=== PATIENT | female | born 1980 | race African-American/Black ===

== ENCOUNTER 2016-11-22 20:10 | Emergency (ER) | payer OTHER ==
[~2016-11-22] VITALS: Ht 170.2 cm; Wt 129.7 kg
[~2016-11-22 20:10] MED LIST: CITA20TA9 PO; FURO-68 PO; HYDR-965 PO; LORA0.5T96 PO; METH-37 PO; NAPR500T3 PO; OXYC-323 PO; SULF200O PO; TRAZ50TA15 PO
[2016-11-22 21:02] VITALS: BP 135/75
[2016-11-22] MEDS ORDERED: FAMO-63 PO (21:12)
--- NOTE | 2016-11-22 21:12 | PHYS DOC ---
Past Medical History Past Medical History: GERD, Other Additional Past Medical Histor: edema,plantar faciaitis,ptsd, Past Surgical History: Other Additional Past Surgical Histo: Cervical Repair/Fusion; L Knee 07/18, gastric sleeve and hernia repair Alcohol Use: Occasionally Drug Use: None Adult General Chief Complaint Chief Complaint: NAUSEA/VOMITING/[facility] HPI Patient is a 35 year old female who presents emergency Department today with complaint of acid reflux with nausea and vomiting symptoms that began approximately one week ago. Patient denies history gastrointestinal disease. She denies any previous exposures to individuals similar illnesses. She denies any abdominal pain or diarrhea. She denies any black or bloody emesis. She denies history of gastric intestinal surgeries or obstructions. She denies abdominal pain. Review of Systems Review of Systems Constitutional: Denies fever or chills [] Eyes: Denies change in visual acuity, redness, or eye pain [] HENT: Denies nasal congestion or sore throat [] Respiratory: Denies cough or shortness of breath [] Cardiovascular: No additional information not addressed in HPI [] GI: Denies abdominal pain, nausea, vomiting, bloody stools or diarrhea [] : Denies dysuria or hematuria [] Musculoskeletal: Denies back pain or joint pain [] Integument: Denies rash or skin lesions [] Neurologic: Denies headache, focal weakness or sensory changes [] Endocrine: Denies polyuria or polydipsia [] Allergies Allergies Allergies Coded Allergies Type Severity Reaction Last Updated Verified No Known Drug Allergies 03/27/16 No Physical Exam Physical Exam Constitutional: Well developed, well nourished, no acute distress, non-toxic appearance. HENT: Normocephalic, atraumatic, bilateral external ears normal, oropharynx moist, no oral exudates, nose normal. [] Eyes: PERRLA, EOMI, conjunctiva normal, no discharge. [] Neck: Normal range of motion, no tenderness, supple, no stridor. [] Cardiovascular:Heart rate regular rhythm, no murmur [] Lungs & Thorax: Bilateral breath sounds clear to auscultation Abdomen: Abdomen is soft and nondistended. There are normal active bowel sounds in all 4 quadrants. There is no palpable defect to the abdominal wall or pulsatile masses. There is no focal area of tenderness, rebound or guarding. Skin: Warm, dry, no erythema, no rash. [] Back: No tenderness, no CVA tenderness. [] Extremities: No tenderness, no cyanosis, no clubbing, ROM intact, no edema. [] Neurologic: Alert and oriented X 3, normal motor function, normal sensory function, no focal deficits noted. [] Psychologic: Affect normal, judgement normal, mood normal. [] Current Patient Data Vital Signs Vital Signs Date Time Temp Pulse Resp B/P Pulse Ox O2 Delivery O2 Flow Rate FiO2 11/22/16 21:02 99.1 80 20 99 Room Air 99.1 EKG EKG [] Radiology/Procedures Radiology/Procedures [] Course & Med Decision Making Course & Med Decision Making Pertinent Labs and Imaging studies reviewed. (See chart for details) [] Dragon Disclaimer Dragon Disclaimer This electronic medical record was generated, in whole or in part, using a voice recognition dictation system. Departure Departure Impression: Primary Impression: Gastritis Disposition: HOME, SELF-CARE Condition: GOOD Referrals: LULY BOYLE (PCP) Patient Instructions: Gastritis, Adult, [id number], Insomnia-Brief Additional Instructions: 1. As discussed, your symptomatology may be due to acid reflux or the development of problems with motility of your esophagus. 2. Review the discharge instructions provided for self-care and reasons to return the emergency department. 3. Take the medications prescribed. Take 25 mg of Benadryl approximately 45 minutes before bedtime. 4. Contact your primary care doctor's office in the morning to schedule an appointment for Wednesday for reevaluation. Scripts Famotidine (Pepcid)20 Mg [id number] Mg PO BID #20 TAB Prov:NGA HUI 11/22/16 NGA HUI Nov 22, 2016 21:12
== END 2016-11-22 21:26 | disposition home or self-care (01) ==
LOC: ER 20:10
DX: K29.70 Gastritis, unspecified, without bleeding (principal); K21.9 Gastro-esophageal reflux disease without esophagitis; F43.10 Post-traumatic stress disorder, unspecified; Z98.1 Arthrodesis status
CPT/HCPCS: 99283

== ENCOUNTER 2017-01-22 23:02 | Emergency (ER) | payer OTHER ==
[~2017-01-22 23:02] MED LIST changes: +FAMO-63 PO
[2017-01-23] MEDS ORDERED: KETOROLAC TROMETHAMINE 30 MG/ML INJ. IV ONE
[2017-01-23] MEDS ORDERED: ONDANSETRON PF 4 MG/2 ML VIAL. IV ONE
[2017-01-23] MEDS ORDERED: IV NORMAL SALINE 1000ML BAG 1,000 ML IV ONE
[2017-01-23] MEDS ORDERED: HYDR-971 PO (01:25)
[2017-01-23] MEDS ORDERED: CYCL5TAB PO (01:25)
--- NOTE | 2017-01-23 01:25 | PHYS DOC ---
Past Medical History Past Medical History: GERD, Other Additional Past Medical Histor: edema,plantar faciaitis,ptsd, Past Surgical History: Other Additional Past Surgical Histo: Cervical Repair/Fusion; L Knee 07/18, gastric sleeve and hernia repair Alcohol Use: Occasionally Drug Use: None Adult General Chief Complaint Chief Complaint: HEADACHE HPI HPI Patient is a 36 year old female who presents with headache. The patient reports 3 day history of aching/throbbing pain to the left side of her head associated with left sided neck stiffness. Denies fevers/chills, vision changes , photophobia/phonophobia, nausea, vomiting, extremity numbness/weakness. Denies previous history of headache. Not sudden in onset or severe at time of onset. Recent work injury to left shoulder, wearing sling, diagnosed with rotator cuff injury & awaiting ortho appointment. Taking naproxen & tramadol for shoulder pain. She has been sleeping in a recliner due to shoulder injury. Review of Systems Review of Systems Constitutional: Denies fever or chills Eyes: Denies change in visual acuity HENT: Denies nasal congestion or sore throat Respiratory: Denies cough or shortness of breath Cardiovascular: Denies chest pain GI: Denies abdominal pain, nausea, vomiting Musculoskeletal: Denies back pain, reports shoulder pain Integument: Denies rash Neurologic: Reports headache, denies focal weakness or sensory changes Current Medications Current Medications Current Medications Medications (Trade) Dose Ordered Sig/Val Start Time Stop Time Status Last Admin Dose Admin Ketorolac Tromethamine (Toradol) 30 mg 1X ONCE 01/23/17 00:00 01/23/17 00:01 DC 01/23/17 00:10 30 MG Ondansetron HCl (Zofran) 4 mg 1X ONCE 01/23/17 00:00 01/23/17 00:01 DC 01/23/17 00:10 4 MG Sodium Chloride (Iv Sodium Chloride 0.9% 1000ml Bag) 1,000 ml @ 1,000 mls/hr 1X ONCE 01/23/17 00:00 01/23/17 00:59 DC 01/23/17 00:09 1,000 MLS/HR Allergies Allergies Allergies Coded Allergies Type Severity Reaction Last Updated Verified No Known Drug Allergies 03/27/16 No Physical Exam Physical Exam Constitutional: Obese, no acute distress, non-toxic appearance. cheerful, laughing with RN at time of my assessment. HENT: Normocephalic, atraumatic, bilateral external ears normal, oropharynx moist, nose normal. Eyes: PERRLA, EOMI, conjunctiva normal, no discharge. Neck: supple, no stridor. no meningismus, left sternocleidomastoid tenderness/ tightness Cardiovascular: RRR, no murmurs, no edema. Lungs & Thorax: LCTAB, no wheezing, no respiratory distress. Abdomen: nondistended. Skin: Warm, dry, no erythema, no rash. Back: No tenderness. left trapezius tenderness/tightness Extremities: left shoulder in sling, radial pulse 2+ Neurologic: Alert and oriented X 3, CN2-12 grossly intact, symmetric strength/ sensation to UE & LE (LUE limited by shoulder injury but symmetric director of strategic initiatives strength present), no focal deficits noted. Psychologic: Affect normal, judgement normal, mood normal. Current Patient Data Vital Signs Vital Signs Date Time Temp Pulse Resp B/P Pulse Ox O2 Delivery O2 Flow Rate FiO2 01/23/17 01:29 65 18 116/59 96 Room Air 01/22/17 23:08 97.9 97.9 Lab Values Laboratory Tests Test 01/22/17 22:58 POC Urine HCG, Qualitative Hcg negative (Negative) EKG EKG [] Radiology/Procedures Radiology/Procedures [] Course & Med Decision Making Course & Med Decision Making Pertinent Labs and Imaging studies reviewed. (See chart for details) The patient presents with headache. Symptoms seem related to trapezius/ sternocleidomastoid spasm associated with rotator cuff injury & sling use. Recommend range of motion exercises for shoulder, heating pad, gave prescriptions for norco & flexeril, no drinking alcohol or driving while taking norco. She was driving tonight so here she received toradol with some relief of symptoms. Follow up with orthopedic surgery & consider appointment with Dr. Chavez in primary care clinic. Come back for worst headache of life, sudden onset severe headache, focal neuro deficit, uncontrolled vomiting, neurovascular compromise of extremity, any otherwise worsening condition. Discharged home in stable condition. [] Dragon Disclaimer Dragon Disclaimer This electronic medical record was generated, in whole or in part, using a voice recognition dictation system. Departure Departure Impression: Primary Impression: Headache Additional Impression: Trapezius muscle spasm Disposition: 01 HOME, SELF-CARE Condition: IMPROVED Patient Instructions: Tension Headache, [id number] Additional Instructions: You seen in the emergency department today for headache. This seems to be related to your shoulder pain. Please remember to do shoulder range of motion exercises as directed by your doctor. Take Flexeril as needed for muscle spasm. Take Forman for severe pain. No drinking alcohol or driving while taking this medication. Follow-up as soon as possible with orthopedic surgery or a primary care doctor. Return to the emergency department for worst headache of your life , high fever, trouble moving arms or legs, any otherwise worsening condition. Scripts Hydrocodone/Apap 5-325 (Forman 5-325 Tablet)1 Each Tablet1 Tab PO PRN Q6HRS PRN PAIN #10 TAB Prov:KATIE MITCHELL MD 01/23/17 Cyclobenzaprine Hcl 5 Mg Tablet1 Tab PO TID PRN MUSCLE SPASMS #10 TAB Prov:KATIE MITCHELL MD 01/23/17 Problem Qualifiers KATIE MITCHELL MD Jan 23, 2017 01:25
[2017-01-23 01:29] VITALS: BP 116/59
== END 2017-01-23 01:29 | disposition home or self-care (01) ==
LOC: ER 23:02
DX: R51 Headache (principal); M62.838 Other muscle spasm; E66.9 Obesity, unspecified; K21.9 Gastro-esophageal reflux disease without esophagitis; F43.10 Post-traumatic stress disorder, unspecified; Z98.1 Arthrodesis status
CPT/HCPCS: 81025; 96361; 96374; 96375; 99284; J1885; J2405; J7030

== ENCOUNTER 2017-06-09 18:22 | Emergency (ER) | payer SELFPAY ==
[~2017-06-09] VITALS: Ht 170.2 cm; Wt 127.5 kg
[~2017-06-09 18:22] MED LIST changes: +CYCL5TAB PO; +HYDR-971 PO
[2017-06-09 18:41] VITALS: BP 136/87
--- NOTE | 2017-06-09 19:26 | PHYS DOC ---
Past Medical History Past Medical History: GERD, Other Additional Past Medical Histor: edema,plantar faciaitis,ptsd, Past Surgical History: Other Additional Past Surgical Histo: Cervical Repair/Fusion; L Knee 07/18, gastric sleeve and hernia repair Alcohol Use: Occasionally Drug Use: None Adult General Chief Complaint Chief Complaint: LOWER EXT PAIN HPI HPI Patient is a 36 year old female with history of acid reflux who presents today with moderate left hip pain radiating to the left lower extremity that began this morning. Patient states the pain is worse on ambulation. Patient denies any known injury. Denies any history of sciatica. Denies any loss of bowel bladder function. Review of Systems Review of Systems Constitutional: Denies fever or chills [] GI: Denies abdominal pain, nausea, vomiting, bloody stools or diarrhea [] : Denies dysuria or hematuria [] Musculoskeletal: Hip pain radiating to the left lower extremity Integument: Denies rash or skin lesions [] Neurologic: Denies headache, focal weakness or sensory changes [] Current Medications Current Medications Current Medications Medications (Trade) Dose Ordered Sig/Val Start Time Stop Time Status Last Admin Dose Admin Dexamethasone Sodium Phosphate (Decadron) 10 mg 1X ONCE 06/09/17 19:30 06/09/17 19:31 Diazepam (Valium) 5 mg 1X ONCE 06/09/17 19:30 06/09/17 19:31 Ketorolac Tromethamine (Toradol Im) 60 mg 1X ONCE 06/09/17 19:30 06/09/17 19:31 Morphine Sulfate 5 mg 1X ONCE 06/09/17 19:30 06/09/17 19:31 Allergies Allergies Allergies Coded Allergies Type Severity Reaction Last Updated Verified No Known Drug Allergies 03/27/16 No Physical Exam Physical Exam Constitutional: Well developed, well nourished, no acute distress, non-toxic appearance. [] Abdomen: Bowel sounds normal, soft, no tenderness, no masses, no pulsatile masses. [] Skin: Warm, dry, no erythema, no rash. [] Back: Exam difficult. Patient is sitting in a wheelchair. No tenderness, no CVA tenderness. [] Extremities: Overweight patient. Exam difficult though patient appears to have positive left leg straight raises. No cyanosis, no clubbing, ROM intact, no edema. [] Neurologic: Alert and oriented X 3, normal motor function, normal sensory function, no focal deficits noted. [] Psychologic: Affect normal, judgement normal, mood normal. [] Current Patient Data Vital Signs Vital Signs Date Time Temp Pulse Resp B/P (MAP) Pulse Ox O2 Delivery O2 Flow Rate FiO2 06/09/17 18:41 98.3 78 20 98 Room Air 98.3 EKG EKG [] Radiology/Procedures Radiology/Procedures [] Course & Med Decision Making Course & Med Decision Making Pertinent Labs and Imaging studies reviewed. (See chart for details) Patient has pain on the left lateral hip and imaging to the left lower extremity that began today, no known injury. Pain suspicious of sciatica. Patient to be discharged with instructions to follow-up with her own PCP as well as orthopedic doctor. She was provided return precautions and discharged in stable condition. Dragon Disclaimer Dragon Disclaimer This electronic medical record was generated, in whole or in part, using a voice recognition dictation system. Departure Departure Impression: Primary Impression: Left sciatic nerve pain Additional Impression: Left hip pain Disposition: HOME, SELF-CARE Condition: STABLE Referrals: NO PCP (PCP) Follow-up with your primary care doctor as well as orthopedic doctor as soon as possible Patient Instructions: Hip Pain, Sciatica with Rehab-SportsMed Additional Instructions: You were seen for left hip pain radiating to the left lower extremity. This pain is suspicious of sciatica but it could be caused by other issues. Please follow-up with the orthopedic doctor as well as your primary care doctor. They may consider to send you for physical therapy. They may consider doing joint injections to the affected areas. Take the prescribed medicines as ordered. Please return to the Ed if symptoms worsen. Scripts Tramadol Hcl (ULTRAM) 50 Mg Tablet 1 TAB PO Q6HRS, #30 TAB Prov: [place] ADMINISTRATOR 06/09/17 Methocarbamol (ROBAXIN) 500 Mg Tablet 1 TAB PO TID, #90 TAB Prov: [place] ADMINISTRATOR 06/09/17 Methylprednisolone (MEDROL) 4 Mg Tab.ds.pk 1 PKG PO UD, #1 PKG Prov: [place] ADMINISTRATOR 06/09/17 Problem Qualifiers [place] ADMINISTRATOR Jun 09, 2017 19:26
[2017-06-09] MEDS ORDERED: MORPHINE SULFATE 10 MG/ML VIAL. IM ONE (19:30)
[2017-06-09] MEDS ORDERED: diazePAM 5 MG TABLET PO ONE (19:30)
[2017-06-09] MEDS ORDERED: KETOROLAC TROMETHAMINE 60 MG/2 ML INJ. IM ONE (19:30)
[2017-06-09] MEDS ORDERED: DEXAMETHASONE SOD PHOS 20 MG/5 ML VIAL. IM ONE (19:30)
[2017-06-09] MEDS ORDERED: METH4TAB2 PO (19:35)
[2017-06-09] MEDS ORDERED: TRAM-48 PO (19:35)
[2017-06-09] MEDS ORDERED: METH-37 PO (19:35)
== END 2017-06-09 20:05 | disposition home or self-care (01) ==
LOC: ER 18:22
DX: M54.32 Sciatica, left side (principal); K21.9 Gastro-esophageal reflux disease without esophagitis; F43.10 Post-traumatic stress disorder, unspecified
CPT/HCPCS: 96372; 99284; J1100; J1885; J2270

== ENCOUNTER 2019-04-15 21:27 | Emergency (ER) | payer OTHER ==
[~2019-04-15] VITALS: Ht 170.2 cm; Wt 137.0 kg
[~2019-04-15 21:27] MED LIST changes: +HYDR-3164 PO; +HYDR-3165 PO; -HYDR-965 PO; -HYDR-971 PO; +METH4TAB2 PO; +NAPR-514 PO; -NAPR500T3 PO; -OXYC-323 PO; +OXYC1TAB15 PO; +TRAM-48 PO; +TRAZ-118 PO; -TRAZ50TA15 PO
[2019-04-15 21:46] VITALS: BP 140/87
[2019-04-15] MEDS ORDERED: KETOROLAC 30 MG/ML VIAL. ONE (22:57)
[2019-04-15] MEDS ORDERED: KETOROLAC 30 MG/ML VIAL. IM ONE (23:00)
[2019-04-15] MEDS ORDERED: ORPH100T PO (23:00)
--- NOTE | 2019-04-15 23:01 | PHYS DOC ---
Past Medical History Past Medical History: Anxiety, Depression, GERD, Other Additional Past Medical Histor: edema,plantar faciaitis,ptsd,ADD Past Surgical History: Other Additional Past Surgical Histo: Cervical Repair/Fusion; L Knee 07/18, gastric sleeve and hernia repair Alcohol Use: Rarely Drug Use: None Adult General Chief Complaint Chief Complaint: LOWER BACK PAIN OR INJURY HPI HPI Patient is a 38 year old female presents with lower back pain is going down her left thigh has been going on since . She states that she's had sciatica before a couple years ago, and states that this feels similar but worse. The patient rates her pain as 6 out of 10 in severity, and states is throbbing and sharp. The patient states that she had ibuprofen about 5 AM this morning which has not helped. Review of Systems Review of Systems Constitutional: Denies fever or chills [] Eyes: Denies change in visual acuity, redness, or eye pain [] HENT: Denies nasal congestion or sore throat [] Respiratory: Denies cough or shortness of breath [] Cardiovascular: No additional information not addressed in HPI [] GI: Denies abdominal pain, nausea, vomiting, bloody stools or diarrhea [] : Denies dysuria or hematuria [] Musculoskeletal: Reports back pain going down left leg. Integument: Denies rash or skin lesions [] Neurologic: Denies headache, focal weakness or sensory changes [] Endocrine: Denies polyuria or polydipsia [] Complete systems were reviewed and found to be within normal limits, except as documented in this note. Current Medications Current Medications Current Medications Medications (Trade) Dose Ordered Sig/[facility] Start Time Stop Time Status Last Admin Dose Admin Ketorolac Tromethamine (Toradol 30mg Vial) 30 mg STK-MED ONCE 04/15/19 22:57 04/15/19 22:58 DC Allergies Allergies Allergies Coded Allergies Type Severity Reaction Last Updated Verified No Known Drug Allergies 03/27/16 No Physical Exam Physical Exam Constitutional: Well developed, well nourished, no acute distress, non-toxic appearance. [] HENT: Normocephalic, atraumatic, bilateral external ears normal, oropharynx moist, no oral exudates, nose normal. [] Eyes: PERRLA, EOMI, conjunctiva normal, no discharge. [] Neck: Normal range of motion, no tenderness, supple, no stridor. [] Cardiovascular:Heart rate regular rhythm, no murmur [] Lungs & Thorax: Bilateral breath sounds clear to auscultation [] Abdomen: Bowel sounds normal, soft, no tenderness, no masses, no pulsatile masses. [] Skin: Warm, dry, no erythema, no rash. [] Back: lower back tenderness to the left side of lumbar spine. Extremities: No tenderness, no cyanosis, no clubbing, ROM intact, no edema. [] Neurologic: Alert and oriented X 3, normal motor function, normal sensory function, no focal deficits noted. [] Psychologic: Affect normal, judgement normal, mood normal. [] Current Patient Data Vital Signs Vital Signs Date Time Temp Pulse Resp B/P (MAP) Pulse Ox O2 Delivery O2 Flow Rate FiO2 04/15/19 21:46 98.3 89 18 140/87 (104) 100 Room Air 98.3 EKG EKG [] Radiology/Procedures Radiology/Procedures [] Course & Med Decision Making Course & Med Decision Making Pertinent Labs and Imaging studies reviewed. (See chart for details) Appears to be Sciatica. Will give Toradol in ER and then write a script for m uscle relaxers as patient drove here. Dragon Disclaimer [place] Disclaimer This electronic medical record was generated, in whole or in part, using a voice recognition dictation system. Departure Departure Impression: Primary Impression: Left sciatic nerve pain Disposition: HOME, SELF-CARE Condition: STABLE Referrals: NO PCP (PCP) Patient Instructions: Sciatica Additional Instructions: Thank you for visiting [facility]. We appreciate you trusting us with your care. If any additional problems come up don't hesitate to return to visit us. Please follow up with your primary care provider so they can plan additional care if needed and know about the problem that you had. If symptoms worsen come back to the Emergency Department. Any concerning symptoms that start such as chest pain, shortness of air, weakness or numbness on one side of the body, running high fevers or any other concerning symptoms return to the ER. Please fill your medications at any pharmacy and follow the prescription instructions. Please do not operate machinery or drive on muscle relaxers. Scripts Orphenadrine Citrate (ORPHENADRINE CITRATE) 100 Mg Tablet.er 1 TAB PO BID, #30 TAB Prov: BEATRIZ DELEON APRN 04/15/19 BEATRIZ DELEON APRN Apr 15, 2019 23:01
== END 2019-04-15 23:15 | disposition home or self-care (01) ==
LOC: ER 21:27
DX: M54.42 Lumbago with sciatica, left side (principal); F41.9 Anxiety disorder, unspecified; F32.9 Major depressive disorder, single episode, unspecified; K21.9 Gastro-esophageal reflux disease without esophagitis
CPT/HCPCS: 96372; 99283; J1885

== ENCOUNTER 2020-08-24 20:01 | Emergency (ER) | payer OTHER ==
[~2020-08-24] VITALS: Ht 170.2 cm; Wt 132.0 kg
[~2020-08-24 20:01] MED LIST changes: +ORPH100T PO
[2020-08-24 20:19] LABS: BILIRUBIN,URINE NEGATIVE (NEG); CLARITY,URINE CLEAR; COLOR,URINE YELLOW; NITRITE,URINE NEGATIVE (NEG); PROTEIN,URINE NEGATIVE (NEG-TRACE)
[2020-08-24 20:28] LABS: BACTERIA,URINE FEW /HPF (0-FEW); RBC,URINE 0 /HPF (0-2); WBC,URINE 20-40 /HPF (0-4)
--- NOTE | 2020-08-24 20:41 | PHYS DOC ---
Past Medical History Past Medical History: Anxiety, Depression, GERD, Other Additional Past Medical Histor: edema,plantar faciaitis,ptsd,ADD (JANNET MOCTEZUMA KNEE BOLTER) Past Surgical History: Other Additional Past Surgical Histo: Cervical Repair/Fusion; L Knee 07/18, gastric sleeve and hernia repair (JANNET MOCTEZUMA KNEE BOLTER) Smoking Status: Never Smoker Alcohol Use: Rarely Drug Use: None (JANNET MOCTEZUMA KNEE BOLTER) General Adult EDM: Chief Complaint: PELVIC PAIN HPI: HPI: Patient is a 39 year old female who presents with today began having right lower quadrant dull aching pain radiating into her flank. She states it has not gone away. Rates her pain 7 out of 10. She states she has not taken any pain medications for today. She states is worse when she gets up and is moving and walking around. Patient denies nausea, vomiting, urinary symptoms, diarrhea, constipation, vaginal discharge, headache, dizziness, fever, vision changes, numbness or tingling. She has a history of depression, cervical repair, miscarriage June 2020, gastric sleeve, dependent edema, gastritis, sciatic nerve pain, UTI, plantar fasciitis, ADD. (JANNET MOCTEZUMA KNEE BOLTER) Review of Systems: Review of Systems: Constitutional: Denies fever or chills. [] Eyes: Denies change in visual acuity. [] HENT: Denies nasal congestion or sore throat. [] Respiratory: Denies cough or shortness of breath. [] Cardiovascular: Denies chest pain or edema. [] GI: + abdominal pain, denies nausea, vomiting, bloody stools or diarrhea. [] : Denies dysuria. [] Musculoskeletal: +Right flank back pain or denies joint pain. [] Integument: Denies rash. [] Neurologic: Denies headache, focal weakness or sensory changes. [] Endocrine: Denies polyuria or polydipsia. [] Lymphatic: Denies swollen glands. [] Psychiatric: Denies depression or anxiety. [] (JANNET MOCTEZUMA KNEE BOLTER) Heart Score: Risk Factors: Risk Factors: DM, Current or recent (<one month) smoker, HTN, HLP, family history of CAD, obesity. Risk Scores: Score 0 - 3: 2.5% MACE over next 6 weeks - Discharge Home Score 4 - 6: 20.3% MACE over next 6 weeks - Admit for Clinical Observation Score 7 - 10: 72.7% MACE over next 6 weeks - Early Invasive Strategies (JANNET MOCTEZUMA APRN) Allergies: Allergies: Allergies Coded Allergies Type Severity Reaction Last Updated Verified No Known Drug Allergies 03/27/16 No (JANNET MOCTEZUMA APRN) Physical Exam: PE: Constitutional: Well developed, well nourished, no acute distress, non-toxic appearance. [] HENT: Normocephalic, atraumatic, bilateral external ears normal, oropharynx moist, no oral exudates, nose normal. [] Eyes: PERRLA, EOMI, conjunctiva normal, no discharge. [] Neck: Normal range of motion, no tenderness, supple, no stridor. [] Cardiovascular:Heart rate regular rhythm, no murmur [] Lungs & Thorax: Bilateral breath sounds clear to auscultation [] Abdomen: Bowel sounds normal, soft, no tenderness, no masses, no pulsatile masses. [] Skin: Warm, dry, no erythema, no rash. [] Back: No tenderness, no CVA tenderness. [] Extremities: No tenderness, no cyanosis, no clubbing, ROM intact, no edema. [] Neurologic: Alert and oriented X 3, normal motor function, normal sensory function, no focal deficits noted. [] Psychologic: Affect normal, judgement normal, mood normal. Normal Physical exam [] (JANNET MOCTEZUMA APRN) Current Patient Data: Labs: Laboratory Tests Test 08/24/20 20:10 Urine Collection Type Unknown Urine Color Yellow Urine Clarity Clear Urine pH 6.0 (<5.0-8.0) Urine Specific Commodore 1.025 (1.000-1.030) Urine Protein Negative mg/dL (NEG-TRACE) Urine Glucose (UA) Negative mg/dL (NEG) Urine Ketones (Stick) Negative mg/dL (NEG) Urine Blood Negative (NEG) Urine Nitrite Negative (NEG) Urine Bilirubin Negative (NEG) Urine Urobilinogen Dipstick 1.0 mg/dL (0.2 mg/dL) Urine Leukocyte Esterase Small (NEG) Urine RBC 0 /HPF (0-2) Urine WBC 20-40 /HPF (0-4) Urine Squamous Epithelial Cells Many /LPF Urine Bacteria Few /HPF (0-FEW) Urine Mucus Marked /LPF POC Urine HCG, Qualitative Hcg negative (Negative) Vital Signs: Vital Signs Date Time Temp Pulse Resp B/P (MAP) Pulse Ox O2 Delivery O2 Flow Rate FiO2 08/24/20 20:20 98.7 68 16 143/67 (92) 100 Room Air 98.7 (JANNET MOCTEZUMA APRN) EKG: EKG: [] (JANNET MOCTEZUMA APRN) Radiology/Procedures: Radiology/Procedures: [] Impression: [facility] [address] [place] [address] IMAGING REPORT Signed PATIENT: JESSICA RODRIGUEZ LACCOUNT: [id number] : 1980 LOCATION: ER AGE: 39 SEX: F EXAM STATUS: REG ER ORD. PHYSICIAN: JANNET MOCTEZUMA APRN REASON: RLQ PAIN, FLANK PAIN, OMNI 300, 75 ML IV PROCEDURE: CT ABD PELV W/ IV CONTRST ONLY INDICATION: Reason: RLQ PAIN, FLANK PAIN, OMNI 300, 75 ML IV / Spl. Instructions: / History: . COMPARISON: None. TECHNIQUE: Axial CT images obtained through the abdomen and pelvis with contrast. One or more of the following individualized dose reduction techniques were utilized for this examination: 1. Automated exposure control; 2. Adjustment of the mA and/or kV according to patient size; 3. Use of iterative reconstruction technique. FINDINGS: Postoperative changes to the stomach and distal esophagus with mild prominence distal esophagus. Abdominal aorta is not aneurysmal. Small fat-containing umbilical hernia. Mild prominence intrahepatic bile ducts. Common bile duct does not appear dilated. Gallbladder is partially contracted. No peripancreatic fluid collection. Spleen unremarkable. No hydronephrosis. Urinary bladder is partially distended. Fullness of the right adnexa measuring up to approximately 6 cm. Low-density at the lower uterine segment to cervical region with some fullness of cervical region and vaginal region. No periappendiceal inflammatory changes. Appendix measures approximately 5 to 6 mm. No dilated loops of bowel to suggest obstruction. There are some prominent lymph nodes in the groin bilaterally. Degenerative changes the spine with multilevel central canal and neural foraminal stenosis. IMPRESSION: * No evidence of bowel obstruction. No periappendiceal inflammatory changes. * No hydronephrosis. * There is some fullness of the right adnexa. Right ovarian lesion may be present given this finding and if further clarification is desired ultrasound could further assess. * There is some fullness of the vaginal region as well as lower uterine segment and cervix which appears low density. Would correlate with symptoms in the region given that inflammation or infection could have this appearance. A cervical mass contributing to this appearance would be less common in a patient of this age but would correlate with physical exam findings. Electronically signed by: Jessica Figueroa MD (08/24/2020 10:10 PM) [id number] DICTATED and SIGNED BY: JESSICA FIGUEROA MD DATE: 08/24/20 [id number] (JANNET MOCTEZUMA APRN) Course & Med Decision Making: Course & Med Decision Making Pertinent Labs and Imaging studies reviewed. (See chart for details) See HPI. Alert and oriented x4. Speaks in full complete sentences. Ambulatory with a steady gait. Abdomen is soft but nontender. Skin pink warm and dry. Patient has bilateral lower extremity 2+ edema of which she states is normal for her. Vital signs within normal limits. Afebrile. Urinalysis shows infection. Patient to receive Rocephin IV, liter of fluids and fentanyl in the ED. Urinalysis shows infection. Blood work unremarkable. CT abdomen pelvis shows: IMPRESSION: * No evidence of bowel obstruction. No periappendiceal inflammatory changes. * No hydronephrosis. * There is some fullness of the right adnexa. Right ovarian lesion may be present given this finding and if further clarification is desired ultrasound could further assess. * There is some fullness of the vaginal region as well as lower uterine segment and cervix which appears low density. Would correlate with symptoms in the region given that inflammation or infection could have this appearance. A cervical mass contributing to this appearance would be less common in a patient of this age but would correlate with physical exam findings. 2300: I have ordered an ultrasound. I have explained the patient's findings thus far. She agrees to get the ultrasound. She will be sent home on Keflex antibiotic for her UTI. Patient is signed over to Dr. Ly to follow-up on ultrasound. [] (JANNET MOCTEZUMA APRN) Course & Med Decision Making 3.6 cm lesion in the posterior uterine body as described, most suggestive of a intramural fibroid. 4.9 cm heterogeneous lesion in the cervix, nonspecific but could represent a cervical fibroid or prolapsed uterine fibroid. Correlate clinically. Nonemergent pelvic MRI could be obtained for further evaluation if indicated. Ultrasound pelvis suggestive of fibroids. Patient's urine consistent with urinary tract infection patient discharged home with instructions to follow-up with primary care physician. (JOYA LY DO) Dragon Disclaimer: Dragmartín Disclaimer: This electronic medical record was generated, in whole or in part, using a voice recognition dictation system. (JANNET MOCTEZUMA APRN) Departure Departure Impression: Primary Impression: UTI (urinary tract infection) Qualified Codes: N30.00 - Acute cystitis without hematuria Additional Impression: Uterine fibroid Disposition: DC HOME SELF CARE/HOMELESS Condition: STABLE Referrals: NO PCP (PCP) Patient Instructions: Urinary Tract Infection Additional Instructions: Follow-up with your gynecology doctor soon as possible. Take medications as prescribed and with food. Drink plenty of fluids. Scripts Cephalexin (KEFLEX) 500 Mg Capsule 1 CAP PO BID for 7 Days, #14 CAP 0 Refills Prov: JANNET MOCTEZUMA APRN 08/24/20 JANNET MOCTEZUMA APRN Aug 24, 2020 20:41 JOYA LY DO Aug 25, 2020 01:00
[2020-08-24] MEDS ORDERED: fentaNYL PF VIAL 100 MCG/2 ML VIAL IVP ONE (20:45)
[2020-08-24] MEDS ORDERED: IV NORMAL SALINE 1000ML BAG 1,000 ML IV ONE ×2 (20:45→23:00)
[2020-08-24 20:51] LABS: BASO # 0.1 x10^3/uL (0.0-0.2); BASO % 1 % (0-3); EOS # 0.2 x10^3/uL (0.0-0.7); EOS % 2 % (0-3); HEMATOCRIT 27.8 % (36.0-47.0); LYMPH # 2.2 x10^3/uL (1.0-4.8); LYMPH % 29 % (24-48); MEAN CORPUSCULAR HEMOGLOBIN 28 pg (25-35); MEAN CORPUSCULAR HGB CONC 32 g/dL (31-37); MEAN CORPUSCULAR VOLUME 86 fL (79-100); MONO # 0.7 x10^3/uL (0.0-1.1); MONO % 9 % (0-9); NEUT # 4.6 x10^3/uL (1.8-7.7); NEUT % 59 % (31-73); PLATELET COUNT 242 x10^3/uL (140-400); RED BLOOD COUNT 3.24 x10^6/uL (3.50-5.40); RED CELL DISTRIBUTION WIDTH 15.4 % (11.5-14.5); WHITE BLOOD COUNT 7.8 x10^3/uL (4.0-11.0)
[2020-08-24 21:00] LABS: CALCIUM 8.3 mg/dL (8.5-10.1); CREATININE 0.6 mg/dL (0.6-1.0); GFR 134.7
[2020-08-24 21:07] LABS: ALBUMIN 2.9 g/dL (3.4-5.0); ALBUMIN/GLOBULIN RATIO 0.7 (1.0-1.7); TOTAL BILIRUBIN 0.1 mg/dL (0.2-1.0)
[2020-08-24] MEDS ORDERED: CONTRAST GIVEN. MC PRN (21:30)
[2020-08-24] MEDS ORDERED: IOHEXOL 300 MG/ML 100ML VIAL. IV ONE (22:00)
--- NOTE | 2020-08-24 22:13 | RAD ---
INDICATION: Reason: RLQ PAIN, FLANK PAIN, OMNI 300, 75 ML IV / Spl. Instructions: / History: . COMPARISON: None. TECHNIQUE: Axial CT images obtained through the abdomen and pelvis with contrast. One or more of the following individualized dose reduction techniques were utilized for this examination: 1. Automated exposure control; 2. Adjustment of the mA and/or kV according to patient size; 3. Use of iterative reconstruction technique. FINDINGS: Postoperative changes to the stomach and distal esophagus with mild prominence distal esophagus. Abdominal aorta is not aneurysmal. Small fat-containing umbilical hernia. Mild prominence intrahepatic bile ducts. Common bile duct does not appear dilated. Gallbladder is partially contracted. No peripancreatic fluid collection. Spleen unremarkable. No hydronephrosis. Urinary bladder is partially distended. Fullness of the right adnexa measuring up to approximately 6 cm. Low-density at the lower uterine segment to cervical region with some fullness of cervical region and vaginal region. No periappendiceal inflammatory changes. Appendix measures approximately 5 to 6 mm. No dilated loops of bowel to suggest obstruction. There are some prominent lymph nodes in the groin bilaterally. Degenerative changes the spine with multilevel central canal and neural foraminal stenosis. IMPRESSION: * No evidence of bowel obstruction. No periappendiceal inflammatory changes. * No hydronephrosis. * There is some fullness of the right adnexa. Right ovarian lesion may be present given this finding and if further clarification is desired ultrasound could further assess. * There is some fullness of the vaginal region as well as lower uterine segment and cervix which appears low density. Would correlate with symptoms in the region given that inflammation or infection could have this appearance. A cervical mass contributing to this appearance would be less common in a patient of this age but would correlate with physical exam findings. Electronically signed by: Ar Hassan MD (08/24/2020 10:10 PM) [id number]
[2020-08-24] MEDS ORDERED: cefTRIAXone IV Push 1 GM VIAL. IVP ONE (23:00)
[2020-08-24] MEDS ORDERED: CEPH-264 PO (23:01)
--- NOTE | 2020-08-25 00:38 | RAD ---
EXAMINATION: PELVIS COMPLETE (PELVIC ULTRASOUND) HISTORY: Possible right ovarian and uterus lesions on CT. History of miscarriage in June 2020 TECHNIQUE: Sonography of the pelvis was performed by transvaginal and transabdominal (limited) techniques. COMPARISON: CT abdomen/pelvis same day FINDINGS: Uterus: 13.3 x 6.4 x 6.4 cm - Myometrium: 3.6 cm ovoid hypoechogenicity in the posterior uterine body with suggestion of prominent internal vascularity on single image, most suggestive of a intramural fibroid. - Endometrium: 7 mm - Cervix: 4.9 cm heterogeneous lesion. No internal hypervascularity. Right ovary: 5.1 x 4.5 x 3.4 cm - 5.1 cm anechoic cyst with several thin septations. Arterial and venous flow is present throughout the ovary on color Doppler imaging with normal spectral waveforms. Left ovary: 2.2 x 2.1 x 2.8 cm - Normal sonographic appearance. Arterial and venous flow is present throughout the left ovary on color Doppler imaging with normal spectral waveforms. Pelvic free fluid: No significant free fluid. IMPRESSION: 3.6 cm lesion in the posterior uterine body as described, most suggestive of a intramural fibroid. 4.9 cm heterogeneous lesion in the cervix, nonspecific but could represent a cervical fibroid or prolapsed uterine fibroid. Correlate clinically. Nonemergent pelvic MRI could be obtained for further evaluation if indicated. Electronically signed by: Wilfred Marin DO (08/25/2020 12:35 AM) [facility] [place]
[2020-08-25 00:51] VITALS: BP 104/66
== END 2020-08-25 01:09 | disposition home or self-care (01) ==
LOC: ER 20:01
DX: N30.00 Acute cystitis without hematuria (principal); D25.9 Leiomyoma of uterus, unspecified; K21.9 Gastro-esophageal reflux disease without esophagitis; Z98.890 Other specified postprocedural states
CPT/HCPCS: 36415; 74177; 76856; 80053; 81001; 81025; 83690; 85025; 87086; 96361; 96374; 96375; 99285; J0696; J3010; J7030; Q9967

== ENCOUNTER → 2020-11-11 | Outpatient (CLI) | payer OTHER ==
[~2020-11-11] MED LIST changes: +CEPH-264 PO
== END ==
LOC: LAB 10:55
PROVIDERS: ATTEND Obstetrics & Gynecology
DX: Z01.812 Encounter for preprocedural laboratory examination (principal); Z20.822 Contact with and (suspected) exposure to COVID-19
CPT/HCPCS: U0003

== ENCOUNTER 2020-11-14 07:12 | Observation (INO) | payer OTHER ==
[2020-11-14] VITALS (8 sets, daily range): BP systolic 105–119; BP diastolic 51–81
[~2020-11-14 07:12] MED LIST changes: +BUPIVACAINE-EPI 0.25% 30 ML VIAL KIT. ONE; +ESTROGENS, CONJ VAGINAL CREAM 30GM TUBE. ONE; +INDIGOTINDISULFONATE SODIUM 40 MG/5 ML AMPUL. ONE; +IV RINGERS,LACTATED 1000ML 1,000 ML IV SCH; +LIDOCAINE 2%/EPI 1:100,000 20 ML VIAL. ONE; +PROCHLORPERAZINE 10 MG/2 ML VIAL. IVP PRN; +SURGICEL HEMOSTAT 4X8 EACH. ONE; +fentaNYL PF VIAL 100 MCG/2 ML VIAL IVP PRN
[2020-11-14] MEDS ORDERED: LIDOCAINE 1%/EPI 1:100,000 20 ML VIAL. INJ ONE (07:30)
[2020-11-14 07:54] LABS: BASO % 1 % (0-3); EOS # 0.1 x10^3/uL (0.0-0.7); EOS % 2 % (0-3); HEMOGLOBIN 10.2 g/dL (12.0-15.5); LYMPH # 2.4 x10^3/uL (1.0-4.8); LYMPH % 30 % (24-48); MEAN CORPUSCULAR HEMOGLOBIN 27 pg (25-35); MEAN CORPUSCULAR HGB CONC 32 g/dL (31-37); MEAN CORPUSCULAR VOLUME 83 fL (79-100); MONO # 0.7 x10^3/uL (0.0-1.1); MONO % 9 % (0-9); NEUT # 4.7 x10^3/uL (1.8-7.7); NEUT % 59 % (31-73); PLATELET COUNT 288 x10^3/uL (140-400); RED BLOOD COUNT 3.85 x10^6/uL (3.50-5.40); RED CELL DISTRIBUTION WIDTH 17.2 % (11.5-14.5)
[2020-11-14] MEDS ORDERED: MIDAZOLAM HCL/PF 2 MG/2 ML VIAL. ONE (08:00)
[2020-11-14] MEDS ORDERED: fentaNYL PF VIAL 100 MCG/2 ML VIAL ONE ×4 (08:00→11:06)
[2020-11-14] MEDS ORDERED: ROCURONIUM 50 MG/5 ML VIAL. ONE ×2 (08:00→09:38)
[2020-11-14] MEDS ORDERED: SUCCINYLCHOLINE 200 MG/10 ML VIAL. ONE (08:04)
[2020-11-14] MEDS ORDERED: ceFAZolin SODIUM 3 GM in IV DEXTROSE 5% 100ML 100 ML IV PRN (09:00)
[2020-11-14] MEDS ORDERED: GLYCOPYRROLATE 1 MG/5 ML VIAL. ONE (09:13)
[2020-11-14] MEDS ORDERED: NEOSTIGMINE METHYLSULFATE 5 MG/5 ML SYRINGE. ONE (09:13)
[2020-11-14] MEDS ORDERED: LIDOCAINE 2% PF 5 ML VIAL. ONE (09:14)
[2020-11-14] MEDS ORDERED: DEXAMETHASONE SOD PHOS 4 MG/ML VIAL ONE (09:14)
[2020-11-14] MEDS ORDERED: ONDANSETRON PF 4 MG/2 ML VIAL. ONE (09:14)
[2020-11-14] MEDS ORDERED: SEVOFLURANE 61 TO 120 MINUTES. IH ONE (09:14)
[2020-11-14] MEDS ORDERED: PHENYLEPHRINE in 0.9% NACL PF 1 MG/10 ML SYRINGE. IV ONE (09:14)
[2020-11-14] MEDS ORDERED: PROPOFOL 10 MG/ML (20ML) VIAL. IV ONE (09:14)
--- NOTE | 2020-11-14 10:46 | PDOC ---
BRIEF OPERATIVE NOTE Date: Nov 14, 2020 Pre-Op Diagnosis 1. Fibroids 2. ROV Cyst 3. Menorrhagia Post-Op Diagnosis 1. Fibroids 2. VANESSA Cyst 5 cm 3. Menorrhagia 4. Right Paratubal cyst Procedure Performed LAVH and LSO Surgeon Dr. Dtuta Chassis Mechanic Fiber Drier Operator: Navid Anesthesia Type: General Blood Loss 150 ml Specimens Obtained cervix, uterus, keshia. fallopian tubes, paratubal cyst, VANESSA Findings enlarged, fibroids uterus, VANESSA cyst 5 cm, Right paratubal cyst Complications none Operative Note see dictation MACO DUTTA Jr, MD Nov 14, 2020 10:46
[2020-11-14] MEDS ORDERED: CALCIUM CARBONATE 500 MG TAB.CHEW PO PRN (11:00)
[2020-11-14] MEDS ORDERED: 0.9 % SODIUM CHLORIDE 10 ML DISP.SYRIN. IV PRN (11:00)
[2020-11-14] MEDS ORDERED: diphenhydrAMINE 50 MG/ML VIAL IV PRN (11:00)
[2020-11-14] MEDS ORDERED: OPIUM/BELLADONNA 30/16.2MG SUPP.RECT. PR PRN (11:00)
[2020-11-14] MEDS ORDERED: PROCHLORPERAZINE 10 MG/2 ML VIAL. IV PRN (11:00)
[2020-11-14] MEDS ORDERED: ZOLPIDEM 5 MG TABLET. PO PRN (11:00)
[2020-11-14] MEDS ORDERED: SIMETHICONE 80 MG TAB.CHEW PO PRN (11:00)
[2020-11-14] MEDS ORDERED: diphenhydrAMINE HCL 25 MG CAPSULE PO PRN (11:00)
[2020-11-14] MEDS ORDERED: oxyCODONE/APAP 5/325 1 TAB TABLET PO PRN (11:00)
[2020-11-14] MEDS ORDERED: ONDANSETRON PF 4 MG/2 ML VIAL. IV PRN (11:00)
[2020-11-14] MEDS ORDERED: DEXTROSE 50% 25 GM / 50ML DISP.SYRIN. IV PRN (11:00)
[2020-11-14] MEDS: fentaNYL PF VIAL 100 MCG/2 ML VIAL IVP PRN ×2 (11:10→11:18)
[2020-11-14] MEDS ORDERED: MORPHINE SULFATE 2 MG/ML VIAL. ONE (11:23)
[2020-11-14] MEDS: MORPHINE SULFATE 2 MG/ML VIAL. IVP PRN ×2 (11:26→11:34)
[2020-11-14] MEDS ORDERED: HYDROmorphone 2 MG/ML VIAL ONE (11:35)
[2020-11-14] MEDS ORDERED: PROCHLORPERAZINE 10 MG/2 ML VIAL. ONE (11:36)
[2020-11-14] MEDS: HYDROmorphone 2 MG/ML VIAL IVP PRN ×4 (11:41→12:15)
[2020-11-14] MEDS ORDERED: GABAPENTIN 300 MG CAPSULE. PO SCH (14:00)
--- NOTE | 2020-11-14 14:08 | OP ---
DATE OF SURGERY: 11/14/2020 PREOPERATIVE DIAGNOSES: 1. Fibroids. 2. Right ovarian cyst. 3. Menorrhagia. POSTOPERATIVE DIAGNOSES: 1. Fibroids. 2. Left ovarian cyst, 5 cm size. 3. Menorrhagia. 4. Right paratubal cyst. PROCEDURE: LAVH and ____. SURGEON: Maco Dutta MD. HELICOPTER PILOT: Navid. ANESTHESIA: GETA. ESTIMATED BLOOD LOSS: 150 mL. COMPLICATIONS: None. FINDINGS: Enlarged fibroid uterus, left ovarian cyst, 5 cm size, right paratubal cyst. SUMMARY: A 39-year-old female with long history of menorrhagia, unresponsive to medical treatment. Endometrial biopsy was negative. CT scan and pelvic sonogram indicated complex right ovarian cyst of about 3.5 cm size. The patient was counseled on the risks, benefits and expectations of LAVH ____ and voiced a clear understanding to proceed. DESCRIPTION OF PROCEDURE: The patient was taken to surgery suite and placed in dorsal lithotomy position. She was prepped with Betadine solution for vaginal prep and ChloraPrep for abdominal prep. After adequate anesthesia, bivalve speculum was placed vaginally. Anterior lip of the cervix was grasped with single tooth tenaculum. The uterine acorn manipulator was then placed. The bivalve speculum was removed. Attention was now placed on abdomen. A small transverse skin incision was made in the left upper quadrant. The Veress needle was then placed through the left upper quadrant incision site. The abdomen was allowed to insufflate up to 2 liters of CO2 gas. The Veress needle was then removed and a 5 mm trocar was placed. The uterus was enlarged with multiple fibroids. The left ovary demonstrated 5 cm cyst, right ovary appeared normal. There was a paratubal cyst on the right side. Two additional incisions were made, one just below the umbilicus as well as another one in the left lower quadrant, in which 5 mm trocars were placed. With aid of graspers and EnSeal device, the right fallopian tube was dissected away from the pelvic sidewall. The right uteroovarian vesicle was coagulated and dissected. The right round ligament was coagulated and dissected. The right broad ligament was coagulated and dissected down to the right uterine artery. The left infundibulopelvic ligament was coagulated and dissected with EnSeal device. The left pelvic sidewall including the left round ligament was coagulated and dissected down to the left uterine artery. Bladder flap was created using EnSeal device and hydrodissection. The pedicles were all hemostatic. A small amount of normal saline was left in posterior cul-de-sac. We then proceeded vaginally. Weighted speculum and curved Eldon were placed vaginally. The acorn uterine manipulator was then removed. Single tooth tenaculum was removed. There was deformation of the anterior cervical lip from a previous cerclage placement, which was removed with the aid of Bovie cautery. Gucci clamps were then placed on the anterior and posterior lip of the cervix. A 2% lidocaine with epinephrine was injected in a circumferential manner. Bovie cautery was utilized to circumscribe the cervix. The vaginal mucosa was dissected away from the lower uterine segment using moist Ray-Ita. The parametrial and cardinal ligaments were then clamped bilaterally, cut, and suture ligated. We then entered the posterior cul-de-sac sharply using curved Kimble scissors. Anterior cul-de-sac was entered bluntly. The uterosacral ligaments were clamped bilaterally, cut, and suture ligated. The cervix, uterus, bilateral fallopian tubes and left ovary were then removed. A modified Dean's culdoplasty was performed incorporating the uterosacral ligaments bilaterally. The remainder of the vaginal cuff was reapproximated using 2-0 Vicryl suture in [id number] manner. Moist vaginal packing was placed. The abdomen was insufflated once again with 2 liters CO2 gas. The posterior cul-de-sac was visualized and was hemostatic. This was verified with suction irrigation. Shweta was then placed on the posterior cul-de-sac. The trocars were then removed under direct visualization. Abdomen was allowed to deflate as much as possible along with mechanical manipulation. The three skin incisions were reapproximated using 4-0 Vicryl suture in subcuticular manner. A 0.25% Marcaine with epinephrine was injected at each incision site. The patient tolerated the procedure well and was taken to recovery room in stable condition. Sponge and needle count correct x3. MACO DUTTA MD DR: REGINALDO/anton JOB#: [id number] / [id number]
[2020-11-14] MEDS: KETOROLAC 30 MG/ML VIAL. IV PRN (17:22)
[2020-11-14] MEDS ORDERED: IV RINGERS,LACTATED 1000ML 1,000 ML IV SCH (19:15)
[2020-11-15 00:35] VITALS: BP 112/73
[2020-11-15] MEDS: KETOROLAC 30 MG/ML VIAL. IV PRN ×2 (00:49→06:56)
[2020-11-15 06:28] VITALS: BP 100/56
--- NOTE | 2020-11-15 08:03 | PDOC ---
SURGICAL PROGRESS NOTE DATE: 11/15/20 TIME: 08:01 Subjective Pt. feeling well. Pain controlled. Vital Signs Vital Signs Date Time Temp Pulse Resp B/P (MAP) Pulse Ox O2 Delivery O2 Flow Rate FiO2 11/15/20 06:28 98.3 83 100/56 (71) 97 Nasal Cannula 98.3 11/14/20 20:33 18 11/14/20 16:05 2.0 I&O Intake and Output 11/15/20 06:59 Intake Total 1460 ml Output Total 1330 ml Balance 130 ml Intake Oral 360 ml IV Total 1100 ml Output Urine Total 1180 ml Estimated Blood Loss 150 ml PATIENT HAS A WYLIE: No General: Alert, Oriented X3, Cooperative HEENT: Atraumatic Lungs: Clear to auscultation Heart: Regular rate Abdomen: Normal bowel sounds, Soft, No tenderness, No masses Neuro: Normal gait Psych/Mental Status: Mental status NL Labs Laboratory Tests Test 11/14/20 07:26 11/14/20 07:40 Bedside Urine HCG, Qualitative Hcg negative (Negative) White Blood Count 8.0 x10^3/uL (4.0-11.0) Red Blood Count 3.85 x10^6/uL (3.50-5.40) Hemoglobin 10.2 g/dL (12.0-15.5) Hematocrit 32.0 % (36.0-47.0) Mean Corpuscular Volume 83 fL (79-100) Mean Corpuscular Hemoglobin 27 pg (25-35) Mean Corpuscular Hemoglobin Concent 32 g/dL (31-37) Red Cell Distribution Width 17.2 % (11.5-14.5) Platelet Count 288 x10^3/uL (140-400) Neutrophils (%) (Auto) 59 % (31-73) Lymphocytes (%) (Auto) 30 % (24-48) Monocytes (%) (Auto) 9 % (0-9) Eosinophils (%) (Auto) 2 % (0-3) Basophils (%) (Auto) 1 % (0-3) Neutrophils # (Auto) 4.7 x10^3/uL (1.8-7.7) Lymphocytes # (Auto) 2.4 x10^3/uL (1.0-4.8) Monocytes # (Auto) 0.7 x10^3/uL (0.0-1.1) Eosinophils # (Auto) 0.1 x10^3/uL (0.0-0.7) Basophils # (Auto) 0.0 x10^3/uL (0.0-0.2) Assessment/Plan POD#1 s/p LAVH & LSO P: D/c home. Justicifation of Admission Dx: Justifications for Admission: Justification of Admission Dx: Yes MACO ENAMORADO Jr, MD Nov 15, 2020 08:03
[2020-11-15 08:05] LABS: BASO % 0 % (0-3); EOS % 1 % (0-3); HEMATOCRIT 27.9 % (36.0-47.0); HEMOGLOBIN 8.9 g/dL (12.0-15.5); LYMPH # 2.2 x10^3/uL (1.0-4.8); LYMPH % 33 % (24-48); MEAN CORPUSCULAR HEMOGLOBIN 27 pg (25-35); MEAN CORPUSCULAR HGB CONC 32 g/dL (31-37); MEAN CORPUSCULAR VOLUME 84 fL (79-100); MONO # 0.6 x10^3/uL (0.0-1.1); MONO % 9 % (0-9); NEUT # 3.7 x10^3/uL (1.8-7.7); NEUT % 57 % (31-73); PLATELET COUNT 237 x10^3/uL (140-400); RED BLOOD COUNT 3.33 x10^6/uL (3.50-5.40); RED CELL DISTRIBUTION WIDTH 17.3 % (11.5-14.5); WHITE BLOOD COUNT 6.5 x10^3/uL (4.0-11.0)
[2020-11-15] MEDS ORDERED: OXYC1TAB15 PO (08:06)
[2020-11-15] MEDS ORDERED: DOCU-109 PO (08:06)
[2020-11-15] MEDS ORDERED: GABA300C18 PO (08:06)
--- NOTE | 2020-11-15 08:07 | DISCH ---
DISCHARGE INSTRUCTIONS Condition on Discharge Condition on Discharge: Stable Activity After Discharge Activity Instructions for Disc: Activity as tolerated Lifting Instructions after Dis: No heavy lifting Driving Instructions after Dis: No driving for 2 weeks Diet after Discharge Diet after Discharge: Regular Wound Incision Care Wound/Incision Care: Ice to area for comfort Contacting the DRTonny after DC Call your doctor for: Concerns you may have Follow-Up Follow up with: Dr. Dutta in 2 wks. MACO DUTTA Jr, MD Nov 15, 2020 08:06
--- NOTE | 2020-11-15 12:45 | NUR ---
discharge instructions given to pt. Pt verbalized understanding.
[2020-11-15 13:25] VITALS: BP 119/83
--- NOTE | 2020-11-18 10:34 | PATHOLOGY ---
[facility] Accession Number: [id number] . 01 Material submitted: . uterus - UTERUS, CERVIX BILATERAL SALPINGECTOMY LEFT OPHERECTOMY RT PARATUBAL CYST. Modifiers: bilateral . 01 Clinical history: . UTERINE FIBROIDS BILATERAL SALPINGECTOMY LEFT OOPHERECTOMY . 02 Diagnosis: Uterus with bilateral attached fallopian tubes and attached left ovary, and detached portion of uterine cervix, hysterectomy with bilateral salpingectomy and left oophorectomy: - Leiomyomas, uterine corpus, intramural, multiple, the largest measuring 4.1 cm in greatest dimension (uterine weight 358 grams). - Chronic cervicitis with squamous metaplasia. - Nabothian cysts, cervix, multiple. - Uterine serosal adhesions. - Inactive/atrophic pattern endometrium. - Adenomyosis, uterine corpus, sub-basal, focal. - Congestion of bilateral fallopian tubes. - Follicle cyst of left ovary. LBQ 11/15/2020 1629 Local . 02 Comment: There is no evidence of malignancy. (JPM/db; 11/15/2020) . 02 Electronically signed: . Domenic Wade MD, Pathologist NPI- [id number] . 01 Gross description: . The specimen is received in formalin labeled "Lakesha Becker, uterus, cervix, bilateral salpingectomy, left oophorectomy". Received is a 358 g, 12.6 7.9 x 7.5 cm uterus with attached cervix, attached left fallopian tube with attached cystic structure weighing 49 g, attached right fallopian tube weighing 5 g, and detached segment of pink-knox tissue weighing 17 g. The uterine serosa is pink-knox in appearance with overlying adhesions on the posterior aspect. The 1.4 cm cervical os is surrounded by pink-knox, disrupted ectocervical mucosa. The uterus is oriented using the peritoneal reflection and the anterior paracervical margin is inked black. The uterus is opened laterally to reveal a pink-knox, corrugated endocervical canal measuring 3.4 cm in length. The endometrial cavity is tear-drop shaped measuring 6.5 cm in length by 1.9 cm in width. The endometrium is pale knox, glistening in appearance and measures 0.1 cm in thickness. Serial sectioning reveals a knox-pink, trabeculated myometrium measuring up to 3.9 cm in thickness displaying multiple intramural fibroids ranging in size from 1.0 to 4.1 cm in maximum dimensions. . The left fimbriated fallopian tube measures 4.3 cm in length by up to 1.0 cm in diameter and is attached to a fluid-filled cystic structure measuring 5.1 x 4.5 x 3.6 cm. Sectioning through the fallopian tube reveals a patent lumen. Sectioning through the cystic structure reveals three individual cystic structures ranging in size from 0.6 to 4.6 cm filled with clear serous fluid. The cyst linings are smooth to slightly hemorrhagic in appearance. A slight amount of ovarian stroma is identified. . The right fimbriated fallopian tube measures 5.7 cm in length by up to 1.0 cm in diameter. Sectioning reveals a patent lumen and the fallopian tube appears grossly unremarkable. . The detached 17 g segment of soft tissue measures 6.1 x 3.2 x 2.7 cm in greatest dimensions. Sectioning reveals a several cystic structures ranging in size from 0.3 to 1.6 cm filled with clear to light green mucoid material. The specimen is submitted member service representative as follows: . A1 12:00 cervix A2 6:00 cervix A3 serosal adhesions A4 anterior endomyometrium A5 posterior endomyometrium A6-A7 member service representative sections of fibroids A8 left fallopian tube and normal ovarian stroma A9 member service representative sections of cyst wall of cystic structure attached to left fallopian tube A10 right fallopian tube A11-A14 member service representative sections of separately submitted segment of pink-knox tissue. . Gross photographs are taken. (CAA; 11/14/2020) [facility] 11/15/2020 1621 Local . 02 Pathologist provided ICD-10: D25.1, N72, N88.8, N80.0, N83.02 . 02 CPT . 559331 Specimen Comment: Report sent to Performed at: 01 [facility] [address], [place], [place] [id number] MD Dani Cisneros MD Phone: [phone] Performed at: 02 [facility] [address] [place], [place] [id number] MD Domenic Wade MD Phone: [phone]
== END 2020-11-15 13:30 | disposition home or self-care (01) ==
LOC: SURG 07:12 → 3 NORTH 11:00
PROVIDERS: ADMIT Obstetrics & Gynecology; ATTEND Obstetrics & Gynecology
DX: D25.9 Leiomyoma of uterus, unspecified (principal); N83.201 Unspecified ovarian cyst, right side; N83.202 Unspecified ovarian cyst, left side; N92.0 Excessive and frequent menstruation with regular cycle; N83.8 Other noninflammatory disorders of ovary, fallopian tube and broad ligament
CPT/HCPCS: 36415; 58554; 81025; 85025; 86850; 86900; 86901; 88307; 96361; 96374; 96376; A4461; G0378; G0379; J0330; J0780; J1100; J1170; J1885; J2250; J2270; J2370; J2405; J2704; J2710; J3010; J3490; J7120; J0690

== ENCOUNTER 2021-04-09 18:21 | Emergency (ER) | payer OTHER ==
[~2021-04-09] VITALS: Ht 170.2 cm; Wt 145.0 kg
[~2021-04-09 18:21] MED LIST changes: -BUPIVACAINE-EPI 0.25% 30 ML VIAL KIT. ONE; +DOCU-109 PO; -ESTROGENS, CONJ VAGINAL CREAM 30GM TUBE. ONE; +GABA300C18 PO; -INDIGOTINDISULFONATE SODIUM 40 MG/5 ML AMPUL. ONE; -IV RINGERS,LACTATED 1000ML 1,000 ML IV SCH; -LIDOCAINE 2%/EPI 1:100,000 20 ML VIAL. ONE; -PROCHLORPERAZINE 10 MG/2 ML VIAL. IVP PRN; -SURGICEL HEMOSTAT 4X8 EACH. ONE; -fentaNYL PF VIAL 100 MCG/2 ML VIAL IVP PRN
[2021-04-09] MEDS ORDERED: AMOX1TAB61 PO ×2 (20:06→21:55)
[2021-04-09] MEDS ORDERED: FURO40TA4 PO (20:06)
--- NOTE | 2021-04-09 20:07 | PHYS DOC ---
Past Medical History Past Medical History: Anxiety, Depression, GERD, Other Additional Past Medical Histor: edema,plantar faciaitis,ptsd,ADD Past Surgical History: Other Additional Past Surgical Histo: Cervical Repair/Fusion; L Knee 07/18, gastric sleeve and hernia repair Smoking Status: Never Smoker Alcohol Use: Rarely Drug Use: None General Adult EDM: Chief Complaint: ANIMAL BITE HPI: HPI: Patient is a 40 year old female who presents to the ED today to be evaluated for cat bite/scratch on the left lower extremity that occurred yesterday. Patient states she accidentally stepped on a cat yesterday and it attacked her. She also would like a refill on furosemide. Review of Systems: Review of Systems: Constitutional: Denies fever or chills. [] Musculoskeletal: Denies back pain or joint pain. [] Integument: Reports cat bite/scratch on the left lower extremity Neurologic: Denies headache, focal weakness or sensory changes. [] Psychiatric: Denies depression or anxiety. [] Heart Score: C/O Chest Pain: N/A Risk Factors: Risk Factors: DM, Current or recent (<one month) smoker, HTN, HLP, family history of CAD, obesity. Risk Scores: Score 0 - 3: 2.5% MACE over next 6 weeks - Discharge Home Score 4 - 6: 20.3% MACE over next 6 weeks - Admit for Clinical Observation Score 7 - 10: 72.7% MACE over next 6 weeks - Early Invasive Strategies Allergies: Allergies: Allergies Coded Allergies Type Severity Reaction Last Updated Verified No Known Drug Allergies 11/14/20 No Physical Exam: PE: Constitutional: Well developed, well nourished, no acute distress, non-toxic appearance. [] Skin: Bilateral lower extremity with chronic edema. Patient out of furosemide. Left lower mays and lower cough with scratches and slight erythema consistent with cat bites and scratches. No drainage. Back: No tenderness, no CVA tenderness. [] Extremities: No tenderness, no cyanosis, no clubbing, ROM intact, no edema. [] Neurologic: Alert and oriented X 3, normal motor function, normal sensory function, no focal deficits noted. [] Psychologic: Affect normal, judgement normal, mood normal. [] Current Patient Data: Vital Signs: Vital Signs Date Time Temp Pulse Resp B/P (MAP) Pulse Ox O2 Delivery O2 Flow Rate FiO2 7/7/21 19:23 98.0 87 18 121/74 (90) 99 98.0 EKG: EKG: [] Radiology/Procedures: Radiology/Procedures: [] Course & Med Decision Making: Course & Med Decision Making Pertinent Labs and Imaging studies reviewed. (See chart for details) This a 40-year-old female patient presenting with cat bites and scratches on the left lower extremity that occurred yesterday. Patient was given Rocephin IM in the ED and started on Augmentin. Tetanus updated. Wound care instructions and return precautions provided. She also requested refill for furosemide Rx was given. Patient was provided return precautions. Dragon Disclaimer: [employer] Disclaimer: This electronic medical record was generated, in whole or in part, using a voice recognition dictation system. Departure Departure Impression: Primary Impression: Cat scratch Additional Impressions: Cat bite of left lower leg Qualified Codes: S81.852A - Open bite, left lower leg, initial encounter; W55.01XA - Bitten by cat, initial encounter Medication refill Disposition: HOME / SELF CARE / HOMELESS Condition: STABLE Referrals: UNKNOWN PCP NAME (PCP) Please follow-up with your own doctor in 1 week Patient Instructions: Cat Scratch Disease-Brief Additional Instructions: You were evaluated in the emergency room for cat bites and scratches to your left lower extremity. Please wash the areas with regular soap and water once or twice a day. Please apply Neosporin to the areas twice a day. Please take the prescribed antibiotics until completed. Take furosemide as ordered and incre ase your potassium intake. Come back to the ED at any point symptoms worsen. Scripts Amoxicillin/Potassium Clav (AUGMENTIN 875-125 TABLET) 1 Each Tablet 1 TAB PO BID for 10 Days, #20 TAB 0 Refills Prov: ROOPA DIALLO [employer]NING HANGER HELPER 04/09/21 Furosemide (LASIX) 40 Mg Tablet 40 MG PO DAILY PRN for SEE COMMENTS, #30 TAB Prov: ROOPA DIALLO Amari [employer]ING HANGER HELPER 04/09/21 Furosemide (FUROSEMIDE) 40 Mg Tablet 1 TAB PO DAILY, #30 TAB Prov: IMANIROOPA Amari [employer]NING HANGER HELPER 04/09/21 ROOPA DIALLO AWNING HANGER HELPER Apr 09, 2021 20:07
[2021-04-09 20:12] VITALS: BP 121/74
[2021-04-09] MEDS ORDERED: FUROSEMIDE 40 MG TABLET. PO ONE (20:30)
[2021-04-09] MEDS ORDERED: LIDOCAINE 1% PF 2 ML VIAL. INJ ONE (20:30)
[2021-04-09] MEDS ORDERED: cefTRIAXone IM 1 GM VIAL IM ONE (20:30)
[2021-04-09] MEDS ORDERED: FURO-68 PO (21:55)
== END 2021-04-09 21:05 | disposition home or self-care (01) ==
LOC: ER 18:21
DX: S81.852A Open bite, left lower leg, initial encounter (principal); K21.9 Gastro-esophageal reflux disease without esophagitis; W55.01XA Bitten by cat, initial encounter; Y93.89 Activity, other specified; Y92.89 Other specified places as the place of occurrence of the external cause; Y99.8 Other external cause status
CPT/HCPCS: 96372; 99283; J0696; J3490

== ENCOUNTER 2021-11-08 03:55 | Emergency (ER) | payer OTHER ==
[~2021-11-08] VITALS: Ht 170.2 cm; Wt 143.0 kg
[~2021-11-08 03:55] MED LIST changes: +AMOX1TAB61 PO; +FURO40TA4 PO
--- NOTE | 2021-11-08 04:17 | PHYS DOC ---
Past Medical History Past Medical History: Anxiety, Depression, GERD, Other Additional Past Medical Histor: shoulder pain left and PTSD/ADHD/anxietydepression/ankle genetic Past Surgical History: Hysterectomy, Other Additional Past Surgical Histo: left rotator, left bicep repair, MCL Left repairx2, ACL left/mays repair Smoking Status: Former Smoker Alcohol Use: None Drug Use: None General Adult EDM: Chief Complaint: SHOULDER INJURY HPI: HPI: Patient is a 40 year old female presents with the chief complaint of left s houlder pain. Onset of pain yesterday progressively getting worse. Pain with ROM left shoulder. Denies any injury. History of left shoulder surgery. Review of Systems: Review of Systems: Constitutional: Denies fever or chills. [] Eyes: Denies change in visual acuity. [] HENT: Denies nasal congestion or sore throat. [] Respiratory: Denies cough or shortness of breath. [] Cardiovascular: Denies chest pain or edema. [] GI: Denies abdominal pain, nausea, vomiting, bloody stools or diarrhea. [] : Denies dysuria. [] Musculoskeletal: Denies back pain or joint pain. [positive shoulder pain] Integument: Denies rash. [] Neurologic: Denies headache, focal weakness or sensory changes. [] Endocrine: Denies polyuria or polydipsia. [] Lymphatic: Denies swollen glands. [] Psychiatric: Denies depression or anxiety. [] Heart Score: C/O Chest Pain: N/A Risk Factors: Risk Factors: DM, Current or recent (<one month) smoker, HTN, HLP, family history of CAD, obesity. Risk Scores: Score 0 - 3: 2.5% MACE over next 6 weeks - Discharge Home Score 4 - 6: 20.3% MACE over next 6 weeks - Admit for Clinical Observation Score 7 - 10: 72.7% MACE over next 6 weeks - Early Invasive Strategies Allergies: Allergies: Allergies Coded Allergies Type Severity Reaction Last Updated Verified No Known Drug Allergies 11/08/21 No Physical Exam: PE: Constitutional: Well developed, well nourished, no acute distress, non-toxic appearance. [] HENT: Normocephalic, atraumatic, bilateral external ears normal, oropharynx moist, no oral exudates, nose normal. [] Eyes: PERRLA, EOMI, conjunctiva normal, no discharge. [] Neck: Normal range of motion, no tenderness, supple, no stridor. [] Cardiovascular:Heart rate regular rhythm, no murmur [] Lungs & Thorax: Bilateral breath sounds clear to auscultation [] Abdomen: Bowel sounds normal, soft, no tenderness, no masses, no pulsatile masses. [] Skin: Warm, dry, no erythema, no rash. [] Back: No tenderness, no CVA tenderness. [] Extremities: No tenderness, no cyanosis, no clubbing, pain with rom left shoulder Neurologic: Alert and oriented X 3, normal motor function, normal sensory function, no focal deficits noted. [] Psychologic: Affect normal, judgement normal, mood normal. [] Current Patient Data: Vital Signs: Vital Signs Date Time Temp Pulse Resp B/P (MAP) Pulse Ox O2 Delivery O2 Flow Rate FiO2 11/08/21 03:57 97.6 83 16 141/56 (84) 100 Room Air 97.6 EKG: EKG: [] Radiology/Procedures: Radiology/Procedures: [] Course & Med Decision Making: Course & Med Decision Making Pertinent Labs and Imaging studies reviewed. (See chart for details) [] Dragon Disclaimer: [employer] Disclaimer: This electronic medical record was generated, in whole or in part, using a voice recognition dictation system. Departure Departure Impression: Primary Impression: Shoulder pain, left Disposition: HOME / SELF CARE / HOMELESS Condition: STABLE Referrals: UNKNOWN PCP NAME (PCP) Patient Instructions: Shoulder Pain Scripts Hydrocodone/Acetaminophen (Hydrocodone-Acetamin 5-325 mg) 1 Each Tablet 1 EACH PO Q4-6HRS, #14 TAB Prov: JOYA PARKER DO 11/08/21 JOYA PARKER DO Nov 08, 2021 04:17
[2021-11-08 04:46] VITALS: BP 134/83
[2021-11-08] MEDS ORDERED: HYDR-2759 PO (05:02)
--- NOTE | 2021-11-08 05:04 | RAD ---
EXAM: LEFT SHOULDER 3 VIEWS. HISTORY: Left shoulder pain. COMPARISON: None. FINDINGS: No fractures are identified. There is mild glenohumeral joint space narrowing. Alignment is maintained. Acromioclavicular joint spaces and alignment are maintained. IMPRESSION: 1. Mild glenohumeral osteoarthritis. Electronically signed by: Lloyd Stoner MD (11/08/2021 5:02 AM) [facility]
== END 2021-11-08 05:41 | disposition home or self-care (01) ==
LOC: ER 04:56
DX: M25.512 Pain in left shoulder (principal); K21.9 Gastro-esophageal reflux disease without esophagitis; F90.9 Attention-deficit hyperactivity disorder, unspecified type; Z87.891 Personal history of nicotine dependence
CPT/HCPCS: 73030; 99283; A4565

== ENCOUNTER 2022-01-27 14:28 | Emergency (ER) | payer OTHER ==
[~2022-01-27] VITALS: Ht 170.2 cm; Wt 142.3 kg
[~2022-01-27 14:28] MED LIST changes: +HYDR-2759 PO
--- NOTE | 2022-01-27 15:12 | EKG ---
[facility] [address] [place] [address] Test Date: 2022-01-27 Test Time: 14:49:33 Pat Name: JESSICA RODRIGUEZ Department: Room: Gender: F Cloud Software Engineer: : 1980 Requested By: ROOPA DIALLO Order Number: [id number] Reading MD: Abel Dover Measurements Intervals [place] Rate: 105 P: 54 [place]: 148 QRS: 26 QRSD: 68 T: 9 QT: 324 QTc: 432 Interpretive Statements SINUS TACHYCARDIA Electronically Signed On 01-28-2022 16:27:55 CDT by Abel Dover
[2022-01-27 15:23] LABS: BASO # 0.1 x10^3/uL (0.0-0.2); BASO % 1 % (0-3); EOS # 0.1 x10^3/uL (0.0-0.7); EOS % 1 % (0-3); HEMATOCRIT 34.5 % (36.0-47.0); HEMOGLOBIN 11.5 g/dL (12.0-15.5); LYMPH # 1.1 x10^3/uL (1.0-4.8); LYMPH % 14 % (24-48); MEAN CORPUSCULAR HEMOGLOBIN 28 pg (25-35); MEAN CORPUSCULAR HGB CONC 33 g/dL (31-37); MEAN CORPUSCULAR VOLUME 84 fL (79-100); MONO # 0.8 x10^3/uL (0.0-1.1); MONO % 9 % (0-9); NEUT # 6.4 x10^3/uL (1.8-7.7); NEUT % 76 % (31-73); PLATELET COUNT 216 x10^3/uL (140-400); RED BLOOD COUNT 4.12 x10^6/uL (3.50-5.40); RED CELL DISTRIBUTION WIDTH 17.1 % (11.5-14.5); WHITE BLOOD COUNT 8.4 x10^3/uL (4.0-11.0)
--- NOTE | 2022-01-27 16:00 | RAD ---
XR CHEST 1V History: Cough. Comparison: None. Technique: AP radiograph of the chest. Findings: The lungs are adequately and symmetrically inflated. No airspace consolidation, pleural effusion or p neumothorax. The cardiomediastinal silhouette and pulmonary vasculature are within normal limits. No acute osseous abnormality. Soft tissues are unremarkable. Mild degenerative osteophytes in the thorac ic spine. Impression: 1. No acute cardiopulmonary process. Electronically signed by: Anderson Garcia MD (01/27/2022 3:57 PM) [id number]
[2022-01-27 17:03] LABS: CALCIUM 7.9 mg/dL (8.5-10.1); CREATININE 0.9 mg/dL (0.6-1.0); GFR 83.5; POTASSIUM 3.9 mmol/L (3.5-5.1)
[2022-01-27 17:08] LABS: ALBUMIN/GLOBULIN RATIO 0.7 (1.0-1.7); MAGNESIUM 1.6 mg/dL (1.8-2.4); TOTAL BILIRUBIN 0.2 mg/dL (0.2-1.0); TOTAL PROTEIN 7.2 g/dL (6.4-8.2)
--- NOTE | 2022-01-27 17:39 | PHYS DOC ---
Past Medical History Past Medical History: Anxiety, Depression, GERD, Other Additional Past Medical Histor: shoulder pain left and PTSD/ADHD/anx ietydepression/ankle genetic (ROOPA DIALLO COAL OR ORE CONTROLLER) Past Surgical History: Hysterectomy, Other Additional Past Surgical Histo: left rotator, left bicep repair, MCL Left repairx2, ACL left/mays repair (ROOPA DIALLO COAL OR ORE CONTROLLER) Smoking Status: Former Smoker Alcohol Use: Rarely Drug Use: None (ROOPA DIALLO COAL OR ORE CONTROLLER) General Adult EDM: Chief Complaint: COUGH HPI: HPI: Patient is a 41 year old female with history of anxiety, depression, presenting to the ED today complaining of a cough. Patient states on Wednesday she had a migraine headache that cleared with BC powder. She states on Wednesday she developed a productive cough with congestion. Denies any fever. Reports slight shortness of breath and chest tightness. (ROOPA DIALLO COAL OR ORE CONTROLLER) Review of Systems: Review of Systems: Constitutional: Denies fever or chills. [] Eyes: Denies change in visual acuity. [] HENT: Denies nasal congestion or sore throat. [] Respiratory: Reports cough and shortness of breath and chest tightness Cardiovascular: Denies chest pain or edema. [] GI: Denies abdominal pain, nausea, vomiting, bloody stools or diarrhea. [] : Denies dysuria. [] Musculoskeletal: Denies back pain or joint pain. [] Integument: Denies rash. [] Neurologic: Denies headache, focal weakness or sensory changes. [] Psychiatric: Denies depression or anxiety. [] (ROOPA DIALLO COAL OR ORE CONTROLLER) Heart Score: C/O Chest Pain: N/A Risk Factors: Risk Factors: DM, Current or recent (<one month) smoker, HTN, HLP, family history of CAD, obesity. Risk Scores: Score 0 - 3: 2.5% MACE over next 6 weeks - Discharge Home Score 4 - 6: 20.3% MACE over next 6 weeks - Admit for Clinical Observation Score 7 - 10: 72.7% MACE over next 6 weeks - Early Invasive Strategies (ROOPA DIALLO COAL OR ORE CONTROLLER) Allergies: Allergies: Allergies Coded Allergies Type Severity Reaction Last Updated Verified No Known Drug Allergies 01/27/22 No (ROOPA DIALLO COAL OR ORE CONTROLLER) Physical Exam: PE: Constitutional: Well developed, well nourished, no acute distress, non-toxic appearance. [] HENT: Normocephalic, atraumatic, bilateral external ears normal, oropharynx moist, no oral exudates, nose normal. [] Eyes: PERRLA, EOMI, conjunctiva normal, no discharge. [] Neck: Normal range of motion, no tenderness, supple, no stridor. [] Cardiovascular: Tachycardic Lungs & Thorax: Patient is actively coughing in the ED. Bilateral breath sounds clear to auscultation [] Abdomen: Bowel sounds normal, soft, no tenderness, no masses, no pulsatile masses. [] Skin: Warm, dry, no erythema, no rash. [] Back: No tenderness, no CVA tenderness. [] Extremities: No tenderness, no cyanosis, no clubbing, ROM intact, no edema. [] Neurologic: Alert and oriented X 3, normal motor function, normal sensory function, no focal deficits noted. [] Psychologic: Affect normal, judgement normal, mood normal. [] (ROOPA DIALLO APRN) Current Patient Data: Labs: Laboratory Tests Test 01/27/22 15:14 White Blood Count 8.4 x10^3/uL (4.0-11.0) Red Blood Count 4.12 x10^6/uL (3.50-5.40) Hemoglobin 11.5 g/dL (12.0-15.5) L Hematocrit 34.5 % (36.0-47.0) L Mean Corpuscular Volume 84 fL (79-100) Mean Corpuscular Hemoglobin 28 pg (25-35) Mean Corpuscular Hemoglobin Concent 33 g/dL (31-37) Red Cell Distribution Width 17.1 % (11.5-14.5) H Platelet Count 216 x10^3/uL (140-400) Neutrophils (%) (Auto) 76 % (31-73) H Lymphocytes (%) (Auto) 14 % (24-48) L Monocytes (%) (Auto) 9 % (0-9) Eosinophils (%) (Auto) 1 % (0-3) Basophils (%) (Auto) 1 % (0-3) Neutrophils # (Auto) 6.4 x10^3/uL (1.8-7.7) Lymphocytes # (Auto) 1.1 x10^3/uL (1.0-4.8) Monocytes # (Auto) 0.8 x10^3/uL (0.0-1.1) Eosinophils # (Auto) 0.1 x10^3/uL (0.0-0.7) Basophils # (Auto) 0.1 x10^3/uL (0.0-0.2) Sodium Level 136 mmol/L (136-145) Potassium Level 3.9 mmol/L (3.5-5.1) Chloride Level 102 mmol/L (98-107) Carbon Dioxide Level 25 mmol/L (21-32) Anion Gap 9 (6-14) Blood Urea Nitrogen 6 mg/dL (7-20) L Creatinine 0.9 mg/dL (0.6-1.0) Estimated GFR (Cockcroft-Gault) 83.5 BUN/Creatinine Ratio 7 (6-20) Glucose Level 94 mg/dL (70-99) Calcium Level 7.9 mg/dL (8.5-10.1) L Magnesium Level 1.6 mg/dL (1.8-2.4) L Total Bilirubin 0.2 mg/dL (0.2-1.0) Aspartate Amino Transferase (AST) 20 U/L (15-37) Alanine Aminotransferase (ALT) 17 U/L (14-59) Alkaline Phosphatase 97 U/L (46-116) Troponin I High Sensitivity 4 ng/L (4-50) Total Protein 7.2 g/dL (6.4-8.2) Albumin 3.0 g/dL (3.4-5.0) L Albumin/Globulin Ratio 0.7 (1.0-1.7) L Laboratory Tests 01/27/22 15:14 Laboratory Tests 01/27/22 15:14 Vital Signs: Vital Signs Date Time Temp Pulse Resp B/P (MAP) Pulse Ox O2 Delivery O2 Flow Rate FiO2 01/27/22 17:03 98 21 117/84 (95) 98 Room Air 01/27/22 14:38 100.5 100.5 (ROOPA DIALLO APRN) EKG: EK interpreted by Dr. Orr sinus tachycardia heart rate 105 no STEMI [] (ROOPA DIALLO APRN) Radiology/Procedures: Radiology/Procedures: []PROCEDURE: PORTABLE CHEST 1V XR CHEST 1V History: Cough. Comparison: None. Technique: AP radiograph of the chest. Findings: The lungs are adequately and symmetrically inflated. No airspace consolidation, pleural effusion or pneumothorax. The cardiomediastinal silhouette and pulmonary vasculature are within normal limits. No acute osseous abnormality. Soft tissues are unremarkable. Mild degenerative osteophytes in the thoracic spine. Impression: 1. No acute cardiopulmonary process. Electronically signed by: Anderson Jaramillo MD (01/27/2022 3:57 PM) [id number] DICTATED and SIGNED BY: ANDERSON JARAMILLO MD DATE: 01/27/22 1556 (ROOPA DIALLO APRN) Course & Med Decision Making: Course & Med Decision Making Pertinent Labs and Imaging studies reviewed. (See chart for details) This a 41-year-old female patient presented to the ED today complaining of a cough with slight shortness of breath, symptoms began on Wednesday. Vitals on arrival to the ED temperature 100.5, heart rate 111, respiration 22 on room air, blood pressure 130/93, O2 sats 98%. EKG is negative, chest x-ray is negative, high-sensitivity troponin is negative, CBC CMP with no acute findings. Discharge to home. Follow-up with PCP in the course of this week. Provided return precautions. (ROOPA DIALLO APRN) Dragon Disclaimer: [employer] Disclaimer: This electronic medical record was generated, in whole or in part, using a voice recognition dictation system. (ROOPA DIALLO APRN) Departure Departure Impression: Primary Impression: Fever Qualified Codes: R50.9 - Fever, unspecified Additional Impression: Cough Disposition: 01 HOME / SELF CARE / HOMELESS Condition: STABLE Referrals: UNKNOWN PCP NAME (PCP) Follow-up with your doctor in the course of this week or next week Patient Instructions: Cough, Adult, [id number], Fever, Adult Additional Instructions: You were evaluated in the emergency room, your chest x-ray is negative for any acute findings. Your lab work is negative for any acute findings. Please take Tylenol or Motrin for pain or fever. Take the prescribed medications as needed for your symptoms. Follow-up with your doctor in the next 7 days Scripts Guaifenesin/Codeine Phosphate (GUAIFENESIN-CODEINE SYRUP) 118 Ml Liquid 5 ML PO Q6HRS, #120 ML Prov: ROOPA DIALLO [employer]OLLER 01/27/22 Albuterol Sulfate (Proair Hfa) 8.5 Gm Hfa.aer.ad 2 PUFF IH PRN Q4-6HRS PRN for wheezing for 21 Days, #1 INHALER 0 Refills Prov: ROOPA DIALLO APRN 01/27/22 Attending Signature I have participated in the care of this patient and I have reviewed and agree with all pertinent clinical information above including history, exam, and recommendations. (BRIANDA ORR DO) ROOPA DIALLO APRN Jan 27, 2022 17:39 BRIANDA ORR DO Jan 27, 2022 17:56
[2022-01-27] MEDS ORDERED: guaiFENesin/CODEINE 100mg/10mg 5 ML LIQUID PO STA (17:40)
[2022-01-27] MEDS ORDERED: ACETAMINOPHEN 500 MG TABLET PO ONE (17:45)
[2022-01-27] MEDS ORDERED: GUAI118L13 PO (17:48)
[2022-01-27] MEDS ORDERED: ALBU2.5V8 IH (17:48)
[2022-01-27 17:54] VITALS: BP 135/83
== END 2022-01-27 17:57 | disposition home or self-care (01) ==
LOC: ER 14:28
DX: R50.9 Fever, unspecified (principal); R05.9 Cough, unspecified; R07.89 Other chest pain; G43.909 Migraine, unspecified, not intractable, without status migrainosus; K21.9 Gastro-esophageal reflux disease without esophagitis; Z87.891 Personal history of nicotine dependence
CPT/HCPCS: 36415; 71045; 80053; 83735; 84484; 85025; 93005; 99285-25